=== PATIENT | male | born 1965 | race Two or more races ===

== ENCOUNTER 2016-07-01 11:19 | Emergency (ER) | payer BC ==
[~2016-07-01] VITALS: Ht 170.2 cm; Wt 76.2 kg
[2016-07-01 11:29] VITALS: BP 144/76
[2016-07-01] MEDS ORDERED: IBUPROFEN 600 MG TABLET PO ONE ×2 (13:30)
== END 2016-07-01 14:19 | disposition home or self-care (01) ==
LOC: ER 11:22
DX: J06.9 Acute upper respiratory infection, unspecified (principal); J45.909 Unspecified asthma, uncomplicated
CPT/HCPCS: A4606; Z7610